=== PATIENT | female | born 1960 | race Two or more races ===

== ENCOUNTER 2022-05-04 15:58 | Inpatient (IN) | payer OTHER ==
[~2022-05-04] VITALS: Ht 154.9 cm; Wt 37.2 kg
--- NOTE | 2022-05-04 16:00 | NUR ---
RECEVED PT 62 YRS FEMALE came by petr from home c/o genralized body pain hx CA LUNG awake and alert respiration spont and easy
--- NOTE | 2022-05-04 16:25 | NUR ---
SEEN BY DR. ECHEVERRIA
[2022-05-04] MEDS ORDERED: IV NS 0.9% 1,000 ML BAG IV ONE (16:30)
[2022-05-04] MEDS ORDERED: GABA300C PO (16:59)
[2022-05-04] MEDS ORDERED: TIOT18CA3 INH (16:59)
[2022-05-04] MEDS ORDERED: ALLO300T2 PO (16:59)
[2022-05-04] MEDS ORDERED: OXYC10TA49 PO (16:59)
[2022-05-04] MEDS ORDERED: NALO25TA PO (16:59)
[2022-05-04] MEDS ORDERED: MORPHINE SULFATE INJ 2 MG/ML DISP.SYRIN IV ONE (17:00)
--- NOTE | 2022-05-04 17:00 | NUR ---
BLOOD DROW BY LAB TACH
[2022-05-04] MEDS ORDERED: MORPHINE SULFATE INJ 4 MG/ML DISP.SYRIN ONE (17:22)
[2022-05-04 17:37] LABS: BASOPHILS # (AUTO) 0.1 K/uL (0.0-0.2); BASOPHILS % (AUTO) 0.4 % (0.0-2.0); HEMATOCRIT 29 % (33-45); LYMPHOCYTES # (AUTO) 0.7 K/uL (0.8-4.8); LYMPHOCYTES % (AUTO) 3.4 % (20.0-44.0); MEAN CORPUSCULAR HGB CONC 31 g/dl (31.0-36.0); MEAN CORPUSCULAR VOLUME 104 fL (82-100); MONOCYTES # (AUTO) 0.8 K/uL (0.1-1.30); MONOCYTES % (AUTO) 3.9 % (2.0-12.0); NEUTROPHILS # (AUTO) 18.9 K/uL (1.8-8.9); NEUTROPHILS % (AUTO) 92.3 % (43.0-81.0); PLATELET COUNT (AUTO) 247 K/uL (150-450); WHITE BLOOD COUNT (AUTO) 20.5 K/uL (4.3-11.0)
[2022-05-04 17:48] LABS: MAGNESIUM 2.4 mg/dL (1.8-2.4)
[2022-05-04 17:52] LABS: CALCIUM, SERUM 8.8 mg/dL (8.5-10.1); CARBON DIOXIDE 20 mmol/L (21-32); CHLORIDE 97 mmol/L (98-107); CREATININE 0.7 mg/dL (0.6-1.3); GLUCOSE 95 mg/dL (74-106); SODIUM SERUM 134 mmol/L (136-145); UREA NITROGEN, BLOOD 29 mg/dL (7-18)
[2022-05-04 17:58] LABS: ALANINE AMINOTRANSFERASE 132 U/L (12-78); ALBUMIN 2.3 g/dL (3.4-5.0); ALKALINE PHOSPHATASE 807 U/L (46-116); ASPARTATE AMINOTRANSFERASE 275 U/L (15-37); BILIRUBIN,DIRECT 2.7 mg/dL (0.0-0.2); BILIRUBIN,TOTAL 3.5 mg/dL (0.2-1.0); LIPASE 114 U/L (73-393); TOTAL PROTEIN, SERUM 5.9 g/dL (6.4-8.2)
--- NOTE | 2022-05-04 18:00 | NUR ---
COVID SWAB SENT TO LAB
[2022-05-04 18:06] LABS: THYROID STIMULATING HORMONE 1.199 uIU/mL (0.358-3.74); URIC ACID 9.4 mg/dL (2.6-7.2)
--- NOTE | 2022-05-04 18:25 | NUR ---
Ward alfred in [facility] - 05/04/22 at 1939 by ADAN ROBERTA DALE RN
[2022-05-04] MEDS ORDERED: LEVOFLOXACIN 750 MG /D5W 150ML 150 ML IV ONE ×2 (18:30→18:33)
--- NOTE | 2022-05-04 19:25 | NUR ---
HAND OFF CHITO PYLE
--- NOTE | 2022-05-04 19:51 | NUR ---
RECEIVED REPORT FROM LOLI PYLE FOR ZEESHAN
[2022-05-04] MEDS ORDERED: HYDROMORPHONE 1 MG/1 ML DISP.SYRIN ONE (19:53)
[2022-05-04] MEDS ORDERED: HYDROMORPHONE 1 MG/1 ML DISP.SYRIN IV ONE (20:00)
[2022-05-04] MEDS ORDERED: ALBUTEROL FS 2.5 MG/0.5 ML VIAL.NEB NEB PRN (22:00)
[2022-05-04] MEDS ORDERED: ACETAMINOPHEN 325 MG TABLET PO PRN (22:00)
--- NOTE | 2022-05-04 22:43 | NUR ---
REPORT GIVEN TO LASHANDA LEE FOR ZEESHAN
[2022-05-04 23:30] VITALS: BP 106/58
[2022-05-04] MEDS ORDERED: CEFEPIME 1 GM in IV D5W 50 ML IV SCH (23:30)
[2022-05-04] MEDS: IV NS 0.9% 1,000 ML IV SCH (23:52)
[2022-05-05] MEDS ORDERED: IPRATROPIUM/ALBUTEROL INHALER IH SCH
[2022-05-05] MEDS ORDERED: VANCOMYCIN HCL 0.75 GM in IV D5W 250 ML IV ONE ×2
--- NOTE | 2022-05-05 | NUR ---
MS RN ADMITTING NOTES: RECEIVED PATIENT FROM ER AWAKE TRANSFER TO ROOM 304-2, NO COMPLAIN OF PAIN AND DISCOMFORT AT THIS TIME, ON ROOM AIR SATURATING WELL, PLACED COMFORTABLY IN BED IN LOW POSITION, CALL LIGHTS WITHIN REACH, ORIENTED TO PLACE, REMIND TO USE CALL LIGHTS WHEN NEEDED ASSISTANCE, SKIN ASSESSMENT DONE, NO SKIN ISSUES WAS NOTED, INVENTORIES DONE AND DOCUMENTED, PATIENT KEPT CLEAN AND DRY ALL NEEDS ATTENDED WILL CONTINUE TO MONITOR
[2022-05-05] MEDS: ENOXAPARIN SODIUM 40 MG/0.4 ML DISP.SYRIN SQ SCH ×2 (00:27→20:09)
[2022-05-05] MEDS: MORPHINE SULFATE INJ 2 MG/ML DISP.SYRIN IV PRN ×6 (00:28→22:56)
[2022-05-05] MEDS ORDERED: CEFEPIME 1 GM VIAL ONE (00:45)
--- NOTE | 2022-05-05 00:45 | NUR ---
RN NOTES: PATIENT HAS AN ORDER OF LOVENOX 40 MG ONCE A DAY SUBCUTANEOUS PATIENT REFUSED, EXPLAIN RISK AND BENEFITS BUT STILL PATIENT REFUSED SHE SAID JUST FOR NOW, MEDICATION NOT GIVEN AND DISCARD
[2022-05-05] MEDS ORDERED: VANCOMYCIN 1 GM VIAL ONE (01:46)
[2022-05-05 04:00] VITALS: BP 113/62
[2022-05-05 06:06] LABS: HEMATOCRIT 32 % (33-45); HEMOGLOBIN 10.1 g/dL (11.5-14.8); LYMPHOCYTES # (AUTO) 0.6 K/uL (0.8-4.8); LYMPHOCYTES % (AUTO) 3.4 % (20.0-44.0); MEAN CORPUSCULAR HGB CONC 32 g/dl (31.0-36.0); MEAN CORPUSCULAR VOLUME 102 fL (82-100); MONOCYTES # (AUTO) 0.6 K/uL (0.1-1.30); MONOCYTES % (AUTO) 3.2 % (2.0-12.0); NEUTROPHILS # (AUTO) 17.5 K/uL (1.8-8.9); NEUTROPHILS % (AUTO) 93.4 % (43.0-81.0); PLATELET COUNT (AUTO) 203 K/uL (150-450); RED BLOOD CELL COUNT(AUTO) 3.13 MIL/uL (4.0-5.2); WHITE BLOOD COUNT (AUTO) 18.7 K/uL (4.3-11.0)
--- NOTE | 2022-05-05 06:26 | NUR ---
BOOMBOAT OPERATOR CLOSING NOTES: PATIENT SLEEP IN BED COMFORTABLY, AROUSABLE TO VERBAL STIMULI, BED IN LOW POSITION CALL LIGHTS WITHIN REACH, NO COMPLAIN OF SOB ON ROOM AIR SATURATING WELL,ON PAIN MANAGEMENT. IV LINE AT RAC#20 WITH ONGOING NSS@70ML HOUR INFUSING WELL, PATIENT ON TELE MONITOR- SR-[id number], PATIENT KEPT CLEAN AND DRY ALL NEEDS MET ENDORSE TO INCOMING SHIFT.
[2022-05-05 06:44] LABS: ALBUMIN 2.2 g/dL (3.4-5.0); BILIRUBIN,TOTAL 3.1 mg/dL (0.2-1.0); CALCIUM, SERUM 8.3 mg/dL (8.5-10.1); CREATININE 0.6 mg/dL (0.6-1.3); MAGNESIUM 2.1 mg/dL (1.8-2.4); PHOSPHORUS 2.1 mg/dL (2.5-4.9); POTASSIUM 3.5 mmol/L (3.5-5.1); TOTAL PROTEIN, SERUM 5.7 g/dL (6.4-8.2)
[2022-05-05] MEDS: ALBUTEROL FS 2.5 MG/3 ML VIAL.NEB NEB SCH ×3 (07:35→20:36)
[2022-05-05] MEDS ORDERED: IPRATROPIUM NEB FS 0.5 MG/2.5 ML AMPUL.NEB NEB SCH (07:35)
[2022-05-05] MEDS: IPRATROPIUM NEB FS 0.5 MG/2.5 ML AMPUL.NEB NEB SCH ×3 (07:35→20:36)
--- NOTE | 2022-05-05 07:43 | NUR ---
RN OPENING NOTES RECEIVED PATIENT IN BED, AWAKE, ALERT AND ORIENTED X3. PATIENT IS STABLE, ON ROOM AIR, TOLERATING WELL. NO SIGNS OF RESPIRATORY DISTRESS NOTED. IV ACCESS IN RAC MIDLINE WITH 20G RUNNING NS @70 ML/HR. BED IN LOWEST POSITION, LOCKED, SIDE RAILS UPx2. TABLE AND CALL LIGHT WITHIN REACH. ALL NEEDS MET AT THIS TIME. WILL CONTINUE TO MONITOR AND ASSIST.
--- NOTE | 2022-05-05 08:21 | NUR ---
RN NOTE MORPHINE GIVEN AT 8:21AM. PATIENT COMPLAINED OF GENERALIZED PAIN. 8/10 ON PAIN SCALE. WILL CONTINUE TO MONITOR.
[2022-05-05 08:24] VITALS: BP 120/62
[2022-05-05] MEDS: ONDANSETRON HCL/PF 4 MG/2 ML VIAL IVP PRN ×2 (08:36→22:48)
[2022-05-05] MEDS: GABAPENTIN 300 MG CAPSULE PO SCH ×2 (08:36→16:55)
[2022-05-05] MEDS: ALLOPURINOL 100 MG TABLET PO SCH (08:37)
[2022-05-05] MEDS: POLYETHYLENE GLYCOL 3350 17 GM POWD.PACK PO SCH (09:00)
[2022-05-05] MEDS: DOCUSATE SODIUM LIQ 100 MG/10 ML UDC PO SCH ×3 (09:00→16:59)
[2022-05-05 10:38] LABS: BAND % (MANUAL) 2 % (0.0-5.0); LYMPHOCYTES % (MANUAL) 5 % (16-48); MONOCYTES % (MANUAL) 3 % (0-11.0); NEUTROPHILS % (MANUAL) 90 (42-76)
[2022-05-05 12:00] VITALS: BP 112/70
[2022-05-05] MEDS ORDERED: NEUTRA PHOS 1 POWD.PACKET PO ONE (12:00)
--- NOTE | 2022-05-05 12:25 | NUR ---
RN NOTE Patient complained of generalized pain 8/10 on pain scale. PRN Morphine given. Will continue to monitor.
[2022-05-05] MEDS: CEFEPIME 2 GM in IV D5W 100 ML IV SCH (12:33)
--- NOTE | 2022-05-05 12:39 | NUR ---
RN NOTE Pharmacy called and asked if patient can bring her home medication Naloxegol, notified patient and said she will have someone bring the medication tomorrow.
--- NOTE | 2022-05-05 13:41 | NUR ---
RT 0735 tx not given. Not aware of order
[2022-05-05] MEDS: IV NS 0.9% 1,000 ML IV SCH (13:50)
[2022-05-05] MEDS: VANCOMYCIN HCL 0.75 GM in IV D5W 250 ML IV SCH (13:50)
[2022-05-05] MEDS: oxyCODONE IR immediate release 5 MG PO PRN (15:15)
--- NOTE | 2022-05-05 15:15 | NUR ---
RN NOTE Patient complained of generalized pain, 8/10 on pain scale. PRN Oxy IR 10 mg given. Will continue to monitor.
[2022-05-05 16:27] VITALS: BP 130/60
--- NOTE | 2022-05-05 19:15 | NUR ---
COMMUNICATIONS SPECIALIST CLOSING NOTE Patient in bed, asleep. A/O x 3, able to make needs known. Stable on room air, breathing evenly and unlabored. No SOB or s/s of distress noted. IV access on RAC #20 infusing NS at 70 ml/hr.On tele monitoring showing sinus tachycardia, HR 110. All needs attended to. Due meds given. Safety precautions maintained: bed in low, locked position; siderails x 2; call light within reach. Will endorse to manufacturing shift supervisor nurse for ZEESHAN.
--- NOTE | 2022-05-05 19:51 | NUR ---
RN OPENING NOTES RECEIVED PT LAYING IN BED, AWAKE. AOx3, ABLE TO MAKE NEEDS KNOWN. ON RA AND TOLERATING WELL. NO SOB NOTED. NO S/SX OF RESPIRATORY DISTRESS NOTED. TELE MONITOR DETECTS SINUS TACHYCARDIA WITH RATE OF 111. IV ACCESS IN RAC #20G RUNNING NS @ 70 ML/HR. SAFETY PRECAUTIONS IN PLACE: BED IN LOWEST, LOCKED POSITION, SIDERAILS UPx2, AND BRAKES ON. TABLE AND CALL LIGHT WITHIN REACH. ALL NEEDS MET AT THIS TIME.
[2022-05-05 20:00] VITALS: BP 120/71
--- NOTE | 2022-05-05 20:09 | NUR ---
RN NOTES PATIENT REFUSED LOVENOX AND STATED I ALREADY TAKE ASPIRIN AND WHEN THEY DRAW BLOOD IT SQUIRTS OUT." PROVIDED PT WITH EDUCATION UPON LOVENOX AND PATIENT BENEFITTING FROM IT SINCE SHE IS BED BOUND BUT SHE STILL REFUSED.
--- NOTE | 2022-05-05 20:36 | NUR ---
RT NOTE PATIENT REFUSING BREATHING TREATMENT AT THIS TIME. NO SIGNS OF SOB AT THIS TIME. NURSE IS BEDSIDE AND AWARE. PATIENT ON 5LPM NASAL CANNULA. WILL CONTINUE TO MONITOR PATIENT.
--- NOTE | 2022-05-05 22:57 | NUR ---
RN NOTES ADMINISTERED MORPHINE FOR PAIN PER PT REQUEST AND MD ORDER. VS WNL.
[2022-05-06] VITALS: BP 103/62
[2022-05-06] MEDS: CEFEPIME 2 GM in IV D5W 100 ML IV SCH ×2 (01:14→12:45)
[2022-05-06] MEDS: ALBUTEROL FS 2.5 MG/3 ML VIAL.NEB NEB SCH ×4 (01:30→19:30)
[2022-05-06] MEDS: IPRATROPIUM NEB FS 0.5 MG/2.5 ML AMPUL.NEB NEB SCH ×4 (01:30→19:30)
[2022-05-06] MEDS: oxyCODONE IR immediate release 5 MG PO PRN ×3 (02:05→20:24)
--- NOTE | 2022-05-06 02:05 | NUR ---
RN NOTES ADMINISTERED OXYCODONE FOR PAIN PER MD ORDER. VS WNL.
--- NOTE | 2022-05-06 02:19 | NUR ---
RT NOTE PATIENT REFUSING TX AT THIS TIME. PRIMARY NURSE IS BEDSIDE AND AWARE.
[2022-05-06] MEDS: VANCOMYCIN HCL 0.75 GM in IV D5W 250 ML IV SCH ×2 (02:30→14:38)
[2022-05-06 04:00] VITALS: BP 108/65
[2022-05-06] MEDS: MORPHINE SULFATE INJ 2 MG/ML DISP.SYRIN IV PRN ×4 (05:26→22:16)
--- NOTE | 2022-05-06 05:26 | NUR ---
RN NOTES ADMINISTERED MORPHINE FOR PAIN. VS WNL. EDUCATED PATIENT ON DOCTOR'S PREFERENCE THAT PATIENT USE OXYCODONE BUT PATIENT SAID IT UPSETS HER STOMACH.
[2022-05-06 06:12] LABS: BASOPHILS % (AUTO) 0.1 % (0.0-2.0); HEMATOCRIT 33 % (33-45); HEMOGLOBIN 10.5 g/dL (11.5-14.8); LYMPHOCYTES # (AUTO) 0.6 K/uL (0.8-4.8); LYMPHOCYTES % (AUTO) 2.3 % (20.0-44.0); MEAN CORPUSCULAR HGB CONC 32 g/dl (31.0-36.0); MEAN CORPUSCULAR VOLUME 102 fL (82-100); MONOCYTES # (AUTO) 0.6 K/uL (0.1-1.30); MONOCYTES % (AUTO) 2.2 % (2.0-12.0); NEUTROPHILS # (AUTO) 26.9 K/uL (1.8-8.9); NEUTROPHILS % (AUTO) 95.4 % (43.0-81.0); PLATELET COUNT (AUTO) 180 K/uL (150-450); RED BLOOD CELL COUNT(AUTO) 3.22 MIL/uL (4.0-5.2); WHITE BLOOD COUNT (AUTO) 28.2 K/uL (4.3-11.0)
[2022-05-06 06:26] LABS: CALCIUM, SERUM 8.2 mg/dL (8.5-10.1); CREATININE 0.7 mg/dL (0.6-1.3); POTASSIUM 3.9 mmol/L (3.5-5.1)
[2022-05-06 06:32] LABS: MAGNESIUM 2.2 mg/dL (1.8-2.4); PHOSPHORUS 3.5 mg/dL (2.5-4.9)
--- NOTE | 2022-05-06 06:32 | NUR ---
RN CLOSING NOTES PT LAYING IN BED, ASLEP ON RIGHT SIDE, AWAKENS TO VERBAL STIMULI. AOx3, ABLE TO MAKE NEEDS KNOWN. ON NC 5LPM AND TOLERATING WELL. NO SOB NOTED. NO S/SX OF RESPIRATORY DISTRESS NOTED. TELE MONITOR DETECTS SINUS TACHYCARDIA WITH RATE OF 111. IV ACCESS IN LFA #22G. IV IS INTACT, PATENT, AND FLUSHING WELL. SURESH CATHETER IN PLACE DRAINING TEA-COLORED URINE. ALL ORDERS CARRIED OUT. ALL NEEDS MET. PT KEPT CLEAN AND DRY.PAIN TREATED THROUGHOUT SHIFT. SAFETY PRECAUTIONS IN PLACE: BED IN LOWEST, LOCKED POSITION, SIDERAILS UPx2, AND BRAKES ON. TABLE AND CALL LIGHT WITHIN REACH. WILL ENDORSE TO ONCOMING SHIFT FOR ZEESHAN.
--- NOTE | 2022-05-06 07:15 | NUR ---
PRE ASSEMBLY WIRER OPENING NOTES RECEIVED PT IN BED, ASLEEP EASILY AROUSED WITH STIMULI. AOx3, ON NC 5LPM AND TOLERATING WELL. NO OR RESPIRATORY DISTRESS NOTED. TELE MONITOR READING SINUS TACHYCARDIA WITH RATE OF 109 BPM. IV ACCESS IN LFA #22G. IV IS INTACT, PATENT, AND FLUSHING WELL. SURESH CATHETER IN PLACE DRAINING TEA-COLORED URINE. SAFETY PRECAUTIONS IN PLACE: BED IN LOWEST, LOCKED POSITION, SIDERAILS UPx2, TABLE AND CALL LIGHT WITHIN REACH. WILL MONITOR PATIENT ACCORDINGLY.
[2022-05-06 08:00] VITALS: BP 118/69
[2022-05-06] MEDS: DOCUSATE SODIUM LIQ 100 MG/10 ML UDC PO SCH ×2 (09:24→16:34)
[2022-05-06] MEDS: ALLOPURINOL 100 MG TABLET PO SCH (09:24)
[2022-05-06] MEDS: POLYETHYLENE GLYCOL 3350 17 GM POWD.PACK PO SCH (09:24)
[2022-05-06] MEDS: GABAPENTIN 300 MG CAPSULE PO SCH ×2 (09:24→16:34)
[2022-05-06 10:17] LABS: BAND % (MANUAL) 4 % (0.0-5.0); LYMPHOCYTES % (MANUAL) 2 % (16-48); METAMYELOCYTES % 1 % (0-0); MONOCYTES % (MANUAL) 4 % (0-11.0); MYELOCYTES % 1 % (0-0); NEUTROPHILS % (MANUAL) 88 (42-76)
[2022-05-06 12:00] VITALS: BP 111/64
[2022-05-06] MEDS: ONDANSETRON HCL/PF 4 MG/2 ML VIAL IVP PRN (12:45)
[2022-05-06] MEDS: ENSURE ENLIVE 237 ML LIQUID (VANILLA) PO SCH ×2 (12:45→16:55)
[2022-05-06 16:00] VITALS: BP 108/54
--- NOTE | 2022-05-06 18:00 | NUR ---
RN NOTES: ENCOURAGING PT TO EAT AND DRINK THE ENSURE, PT STILL REFUSING. EXPLAINED THERES A POSSIBILITY THEY WILL START ENTERAL FEEDING. PATIENT WILL THINK OF IT.
--- NOTE | 2022-05-06 18:40 | NUR ---
MANAGER STUDY CLOSING NOTES PT IN BED, ASLEEP EASILY AROUSED WITH STIMULI. AOx3, ON NC 5LPM AND TOLERATING WELL. NO OR RESPIRATORY DISTRESS NOTED. TELE MONITOR READING SINUS TACHYCARDIA WITH RATE OF 100 BPM. IV ACCESS IN LFA #22G. IV IS INTACT, PATENT, AND FLUSHING WELL. SURESH CATHETER IN PLACE DRAINING TEA-COLORED URINE. SAFETY PRECAUTIONS IN PLACE: BED IN LOWEST, LOCKED POSITION, SIDERAILS UPx2, TABLE AND CALL LIGHT WITHIN REACH. WILL MONITOR PATIENT ACCORDINGLY. WILL ENDORSED TO NOC SHIFT FOR CONTINUITY OF CARE.
--- NOTE | 2022-05-06 19:21 | NUR ---
RN OPENING NOTE PATIENT AWAKE IN BED. A/OX3. NO S/S OF DISTRESS, BREATHING WITHOUT DIFFICULTY ON 5L NC. RAC #20 SL & LFA #22 SL - BOTH INTACT AND PATENT. TELE READS ST108. SAFETY MEASURES IN PLACE: BED LOCKED AT LOWEST POSITION, RAILS UP X2, CALL [place] WITHIN REACH. WILL CONTINUE TO MONITOR PATIENT.
[2022-05-06 20:00] VITALS: BP 129/68
[2022-05-06] MEDS: ENOXAPARIN SODIUM 40 MG/0.4 ML DISP.SYRIN SQ SCH (21:34)
[2022-05-07] VITALS: BP 145/67
[2022-05-07] MEDS: CEFEPIME 2 GM in IV D5W 100 ML IV SCH (00:05)
[2022-05-07] MEDS: oxyCODONE IR immediate release 5 MG PO PRN (00:52)
[2022-05-07] MEDS: ONDANSETRON HCL/PF 4 MG/2 ML VIAL IVP PRN (01:06)
[2022-05-07] MEDS: ALBUTEROL FS 2.5 MG/3 ML VIAL.NEB NEB SCH ×4 (01:30→13:30)
[2022-05-07] MEDS: IPRATROPIUM NEB FS 0.5 MG/2.5 ML AMPUL.NEB NEB SCH ×4 (01:30→13:30)
--- NOTE | 2022-05-07 01:52 | NUR ---
RN NOTE PATIENT DECLINED 0130 BREATHING TREATMENT. RT NOTIFIED THIS RN. PATIENT STABLE; WILL CONTINUE TO MONITOR.
--- NOTE | 2022-05-07 01:56 | NUR ---
RT Pt refused breathing tx. LASHANDA Botello notified. Pt SPO2 98%.
[2022-05-07] MEDS: VANCOMYCIN HCL 0.75 GM in IV D5W 250 ML IV SCH (02:31)
[2022-05-07 04:00] VITALS: BP 105/72
[2022-05-07 06:01] LABS: BASOPHILS % (AUTO) 0.1 % (0.0-2.0); HEMATOCRIT 34 % (33-45); HEMOGLOBIN 10.5 g/dL (11.5-14.8); LYMPHOCYTES # (AUTO) 0.5 K/uL (0.8-4.8); LYMPHOCYTES % (AUTO) 1.7 % (20.0-44.0); MEAN CORPUSCULAR HGB CONC 31 g/dl (31.0-36.0); MEAN CORPUSCULAR VOLUME 102 fL (82-100); MONOCYTES # (AUTO) 0.6 K/uL (0.1-1.30); MONOCYTES % (AUTO) 2.2 % (2.0-12.0); NEUTROPHILS # (AUTO) 25.7 K/uL (1.8-8.9); PLATELET COUNT (AUTO) 165 K/uL (150-450); RED BLOOD CELL COUNT(AUTO) 3.27 MIL/uL (4.0-5.2); WHITE BLOOD COUNT (AUTO) 26.7 K/uL (4.3-11.0)
[2022-05-07] MEDS: MORPHINE SULFATE INJ 2 MG/ML DISP.SYRIN IV PRN ×2 (06:12→10:56)
--- NOTE | 2022-05-07 06:15 | NUR ---
RN NOTE PATIENT WAS FOUND TO HAVE REMOVED HER RAC IV ACCESS. ALL ITEMS INCLUDING CATH ACCOUNTED FOR. PRESSURE DRESSING APPLIED. PATIENT STABLE; WILL CONTINUE TO MONITOR.
--- NOTE | 2022-05-07 06:34 | NUR ---
RN CLOSING NOTE PATIENT AWAKE IN BED. A/OX3. NO S/S OF DISTRESS, BREATHING WITHOUT DIFFICULTY ON 5L NC. LFA #22 SL INTACT AND PATENT. TELE MONITOR READS ST 110. SAFETY MEASURES IN PLACE: BED LOCKED AND AT LOWEST POSITION, RAILS UP X2, CALL [place] WITHIN REACH. WILL ENDORSE TO NEXT SHIFT FOR ZEESHAN.
[2022-05-07 06:37] LABS: CREATININE 0.8 mg/dL (0.6-1.3); MAGNESIUM 2.4 mg/dL (1.8-2.4); PHOSPHORUS 3.2 mg/dL (2.5-4.9); POTASSIUM 4.7 mmol/L (3.5-5.1)
--- NOTE | 2022-05-07 07:15 | NUR ---
ART MODEL OPENING NOTES RECEIVED PT IN BED, AWAKE AOx3, ON NC 5LPM AND TOLERATING WELL. NO OR RESPIRATORY DISTRESS NOTED. TELE MONITOR READING SINUS TACHYCARDIA WITH RATE OF 110 BPM. IV ACCESS IN LFA #22G. IV IS INTACT, PATENT, AND FLUSHING WELL. SURESH CATHETER IN PLACE DRAINING TEA-COLORED URINE. SAFETY PRECAUTIONS IN PLACE: BED IN LOWEST, LOCKED POSITION, SIDERAILS UPx2, TABLE AND CALL LIGHT WITHIN REACH. WILL MONITOR PATIENT ACCORDINGLY.
[2022-05-07 08:00] VITALS: BP 137/74
[2022-05-07] MEDS ORDERED: MIRT-90 PO (08:24)
--- NOTE | 2022-05-07 08:40 | NUR ---
RN NOTES: PT IS HAVING ANXIETY, TACHYCARDIC [address] KOTHARI AND ORDERED BREATHING TX. PAGED RT.
--- NOTE | 2022-05-07 08:57 | NUR ---
RN NOTES: PATIENT PULLED OUT IV ACCESS.AND REFUSED BREATHING TX.
[2022-05-07] MEDS: POLYETHYLENE GLYCOL 3350 17 GM POWD.PACK PO SCH (09:00)
[2022-05-07] MEDS: GABAPENTIN 300 MG CAPSULE PO SCH (09:00)
[2022-05-07] MEDS: DOCUSATE SODIUM LIQ 100 MG/10 ML UDC PO SCH (09:00)
[2022-05-07] MEDS: ENSURE ENLIVE 237 ML LIQUID (VANILLA) PO SCH (09:00)
[2022-05-07] MEDS: ALLOPURINOL 100 MG TABLET PO SCH (09:00)
--- NOTE | 2022-05-07 10:43 | NUR ---
RN NOTES: SEEN AND EXAMINED BY NI DOLAN, ORDERD ABG STAT, SOLU MEDROL 40 MG NOW THEN BID IVP, PULMO AND ONCO CONSULT. ORDERS NOTED AND CARRIED OUT.
[2022-05-07] MEDS ORDERED: methylPREDNISolone SOD SUCC 40 MG/ML VIAL IV SCH (11:00)
[2022-05-07 12:00] VITALS: BP 98/60
--- NOTE | 2022-05-07 12:00 | NUR ---
RN NOTES: PATIENT IS RESTLESS, HR 140S AND KEPT GETTING UP FROM BED. INFORMED DR KOTHARI, ORDERED ATIVAN 0.5MG IVP NOW. ORDERS NOTED AND CARRIED OUT.
[2022-05-07 12:05] LABS: BAND % (MANUAL) 2 % (0.0-5.0); LYMPHOCYTES % (MANUAL) 2 % (16-48); MONOCYTES % (MANUAL) 2 % (0-11.0); NEUTROPHILS % (MANUAL) 94 (42-76)
[2022-05-07] MEDS ORDERED: LORAZEPAM INJ 2 MG/ML VIAL IV STA (12:13)
--- NOTE | 2022-05-07 12:20 | NUR ---
RN NOTES: ABG RESULTS, CRITICAL VALUE: PH 6.9, CO2 39, BICARBS 8, SATURATION UNABLE. RELAYED TO DR OWUSU AND MAGDALENO KOTHARI. PER DR OWUSU PT IS DYING. AND WILL TALK TO MAGDALENO KOTHARI.
[2022-05-07 12:41] LABS: ABG BASE EXCESS -23.5 mmol/L; ABG OXYGEN SATURATION 37.4 % (92.0-98.5); ABG PCO2 39.9 mmHg (35.0-45.0); ABG PH 6.926 (7.350-7.450); AaDO2 204.3 mmHg; COHb 0.3 % (0.5-1.5); MetHb 0.3 % (0.0-1.5); O2Hb 37.2 % (94.0-97.0); SITE, ABG Left Brachial
--- NOTE | 2022-05-07 13:51 | NUR ---
POST MORTEM NOTES: AROUND 1250PM PATIENT ACTIVELY DYING VS FLUCTUATING. PATIENT 1307, PLACED HEAD IN LOWEST POSITION WITH PILLOW. POST MORTEM CARE PLACE IN COMFORTABLY. REMOVED IV ACCESS AND SURESH CATHETER. NEXT OF KIN NOTIFIED (MR GARCIACristhian, MADE AWARE, CHARGE NURSE, STAFF SUBMARINE WARFARE OFFICER AND [employer] NOTIFIED . PLACED THE PATIENT IN POST MORTEM BAG, IDENTIFICATION TAG IN PLACE IN HER RIGHT TOE, BAG TAGGED. BELONGINGS PLACED IN A BAG WITH NAME TAG ON IT. BODY RELEASED BY THE CORNER,, SECURITY CALLED TO TRANSFER PATIENT TO [facility].
--- NOTE | 2022-05-07 14:12 | NUR ---
RN NOTES: SECURITY PICKED UP THE PATIENT. BELONGINGS CARRIED WITH SECURITY WITH TAG ON IT. CHART LEFT IN THE PROGRAMMER NUMERICAL CONTROL.
[2022-05-08] MEDS ORDERED: MOVANTIK 25 MG PO SCH (09:00)
== END 2022-05-07 14:00 | DRG 720 ==
LOC: ER 16:04 → MED 22:54 → TELE 23:08
PROVIDERS: ADMIT Internal Medicine; ATTEND Registered Nurse
DX: A41.9 Sepsis, unspecified organism (principal); J96.01 Acute respiratory failure with hypoxia; E43 Unspecified severe protein-calorie malnutrition; C79.51 Secondary malignant neoplasm of bone; D68.9 Coagulation defect, unspecified; J96.02 Acute respiratory failure with hypercapnia; E87.2 Acidosis; R53.2 Functional quadriplegia; J18.9 Pneumonia, unspecified organism; E87.1 Hypo-osmolality and hyponatremia; E83.39 Other disorders of phosphorus metabolism; E88.09 Other disorders of plasma-protein metabolism, not elsewhere classified; C34.90 Malignant neoplasm of unspecified part of unspecified bronchus or lung; E86.0 Dehydration; R65.20 Severe sepsis without septic shock; N39.0 Urinary tract infection, site not specified; Z20.822 Contact with and (suspected) exposure to COVID-19; Z92.21 Personal history of antineoplastic chemotherapy; Z66 Do not resuscitate; Z79.899 Other long term (current) drug therapy; Z79.51 Long term (current) use of inhaled steroids; C78.7 Secondary malignant neoplasm of liver and intrahepatic bile duct; E80.6 Other disorders of bilirubin metabolism; R74.01 Elevation of levels of liver transaminase levels; D53.9 Nutritional anemia, unspecified; F41.9 Anxiety disorder, unspecified; G89.29 Other chronic pain; K74.60 Unspecified cirrhosis of liver; R62.7 Adult failure to thrive
CPT/HCPCS: 36415; 36600; 71045-TC; 76700-TC; 80048-TC; 80053-TC; 80076-TC; 80202-TC; 82550-TC; 83605-TC; 83690-TC; 83735-TC; 84100-TC; 84439-TC; 84443-TC; 84484-TC; 84550-TC; 85025-TC; 85730-TC; 87040-TC; 87081-TC; 92526; 92611-TC; 94799-TC; 97110-TC; 97530-TC; C9803; G0378; J0692; J1170; J1650; J1956; J2060; J2270; J2405; J2920; J3370; J7030; J7040; J7060